=== PATIENT | female | born 1950 | race Caucasian/White ===

== ENCOUNTER → 2017-02-03 | Outpatient (CLI) | payer OTHER | LOC: KOH-I 11:01 | DX: M25.532 Pain in left wrist (principal); M79.602 Pain in left arm; M25.842 Other specified joint disorders, left hand | CPT/HCPCS: 73080; 73110; 73140 ==

== ENCOUNTER → 2017-02-08 | Outpatient (CLI) | payer OTHER ==
[2017-02-08 10:27] LABS: HEMOGLOBIN 14.4 gm/dl (12.3-15.3); RED BLOOD COUNT 4.79 M/UL (4.00-5.10); WHITE BLOOD COUNT 6.1 K/UL (4.5-11.0)
== END ==
LOC: LAB 09:50
PROVIDERS: Nurse Practitioner
DX: M13.80 Other specified arthritis, unspecified site (principal)
CPT/HCPCS: 36415; 85025; 86140